=== PATIENT | female | born 1945 ===

== ENCOUNTER 2018-11-29 09:54 | Emergency (ER) | payer MEDICARE ==
[2018-11-29 10:44] LABS: Hematocrit 33.9 % (30.3-42.9); Hemoglobin 11.6 gm/dl (10.1-14.3); Mean Corpuscular HGB Conc 34 % (30-34); Mean Corpuscular Volume 87 fl (79-97); Platelet Count 189 K/mm3 (140-440); Red Blood Count 3.89 M/mm3 (3.65-5.03); Red Cell Distribution Width 12.2 % (13.2-15.2)
[2018-11-29] MEDS ORDERED: NACL 0.9% 1000 ML 1,000 ML IV ONE ×2 (11:08→15:51)
[2018-11-29] MEDS ORDERED: ZOFRAN IV ONE (11:08)
--- NOTE | 2018-11-29 11:15 | Emergency Department Report ---
ED General Adult HPI - General Chief complaint: Weakness Stated complaint: ABD PAIN Time Seen by Provider: 11/29/18 10:59 Source: patient Mode of arrival: Stretcher Limitations: Language Barrier - History of Present Illness Initial comments: Patient is 73 years old patient female translation through her sister. Patient presented to the ER complaining of generalized weakness, nausea no vomiting. Patient is also complaining of bilateral flank pain and lower abdominal pain. Family stated that she was seen by her primary care physician and started on some medication but they don't know what's the name of the medication and nor they bring the medication to the hospital. She denied any fever or chills. Patient denied any chest pain, shortness of breath, cough. She stated that her urine is hot. - Related Data Allergies Allergy/AdvReac Type Severity Reaction Status Date / Time No Known Allergies Allergy Unverified 11/29/18 11:39 ED Review of Systems ROS: Stated complaint: ABD PAIN Other details as noted in HPI Comment: All other systems reviewed and negative Constitutional: denies: chills, fever Respiratory: denies: cough, orthopnea, shortness of breath, SOB with exertion, SOB at rest, wheezing Cardiovascular: denies: chest pain, palpitations Gastrointestinal: abdominal pain, nausea, diarrhea (1 time, watery diarrhea, no blood.). denies: vomiting Genitourinary: dysuria. denies: urgency, frequency, hematuria, discharge Musculoskeletal: back pain Neurological: weakness (generalized) Psychiatric: denies: depression ED Past Medical Hx - Past Medical History Previous Medical History?: Yes Hx Hypertension: Yes Hx Diabetes: Yes Additional medical history: HYPERLIPIDEMIA, HEART DISEASE - Social History Smoking Status: Never Smoker Substance Use Type: None ED Physical Exam - General Limitations: Language Barrier General appearance: alert, in no apparent distress - Head Head exam: Present: atraumatic, normocephalic, normal inspection - Eye Eye exam: Present: normal appearance, PERRL - ENT ENT exam: Present: mucous membranes dry - Neck Neck exam: Present: normal inspection, full ROM. Absent: tenderness, meningismus, lymphadenopathy, thyromegaly - Respiratory Respiratory exam: Present: normal lung sounds bilaterally - Cardiovascular Cardiovascular Exam: Present: tachycardia, normal heart sounds. Absent: systolic murmur - GI/Abdominal GI/Abdominal exam: Present: soft, normal bowel sounds. Absent: distended, tenderness, guarding, rebound, rigid, organomegaly, mass, bruit, pulsatile mass, hernia - Extremities Exam Extremities exam: Present: normal inspection, full ROM, normal capillary refill - Back Exam Back exam: Present: normal inspection, full ROM, CVA tenderness (R), CVA tenderness (L). Absent: muscle spasm, paraspinal tenderness, vertebral tenderne ss - Neurological Exam Neurological exam: Present: alert, oriented X3, CN II-XII intact - Skin Skin exam: Present: warm, intact, normal color ED Course Vital Signs 11/29/18 11/29/18 11/29/18 09:59 10:31 14:01 Temperature 98.1 F Pulse Rate 102 H 100 H 60 Respiratory 17 18 18 Rate Blood Pressure 136/52 Blood Pressure 138/60 133/47 [Right] O2 Sat by Pulse 100 97 98 Oximetry ED Medical Decision Making - Lab Data Result diagrams: 11/29/18 10:17 11/29/18 10:17 - EKG Data -: EKG Interpreted by Ne EKG shows normal: sinus rhythm Rate: normal - EKG Data Interpretation: no acute changes - Radiology Data Radiology results: report reviewed CT abdomen and pelvis showed no acute intra-abdominal process. Chest x-ray is unremarkable. - Medical Decision Making Patient is 73 years old patient female translation through her sister. Patient presented to the ER complaining of generalized weakness, nausea no vomiting. Patient is also complaining of bilateral flank pain and lower abdominal pain. Family stated that she was seen by her primary care physician and started on some medication but they don't know what's the name of the medication and nor they bring the medication to the hospital. She denied any fever or chills. Patient denied any chest pain, shortness of breath, cough. She stated that her urine is hot. Patient received normal saline 2 L and Zofran. Patient stated that she is feeling much better. Labs reviewed and is unremarkable. Chest x-ray is negative for acute findings EKG is unremarkable. A CT abdomen and pelvis showed no acute intra-abdominal process. Patient advised to follow-up with her primary care physician in the next 2-3 days and to return to the ER if symptoms are not improved. Critical care attestation.: If time is entered above; I have spent that time in minutes in the direct care of this critically ill patient, excluding procedure time. ED Disposition Clinical Impression: Generalized weakness, Abdominal pain Disposition: TO HOME OR SELFCARE Is pt being admited?: No Condition: Stable Instructions: Abdominal Pain (ED), Weakness (ED) Referrals: BEVERLEY SANTOS MD [Primary Care Provider] - 3-5 Days
[2018-11-29 11:16] LABS: BUN/Creatinine Ratio 33; Blood Urea Nitrogen 30 mg/dL (7-17); Hemolysis Index 23
[2018-11-29 11:47] LABS: Alanine Aminotransferase 108 units/L (7-56); Albumin 3.3 g/dL (3.9-5)
[2018-11-29 11:49] LABS: Bacteria,Urine 1+ /HPF (Negative); Bilirubin,Urine NEG (Negative); Blood,Urine NEG (Negative); Color,Urine Yellow (Yellow); Mucus,Urine FEW /HPF; Protein,Urine <15 mg/dL mg/dL (Negative); Urobilinogen,Urine < 2.0 mg/dL (<2.0); WBC,Urine < 1.0 /HPF (0.0-6.0)
[2018-11-29 11:55] LABS: Bilirubin,Direct < 0.2 mg/dL (0-0.2)
--- NOTE | 2018-11-29 12:05 | XRay Report ---
AP CHEST: HISTORY: Weakness AP view of the chest demonstrates a normal mediastinal and cardiac contour with clear lungs and normal bony and soft tissue structures. IMPRESSION: No acute cardiopulmonary process.
[2018-11-29 13:18] LABS: Basophils % (Manual) 0 % (0.0-1.8); Platelet Estimate Consistent w Auto; RBC Morphology Normal; Total Cells Counted 100
--- NOTE | 2018-11-29 15:43 | Cat Scan Report ---
CT ABDOMEN PELVIS WITH CONTRAST: HISTORY: abdominal pain. COMPARISON: none. TECHNIQUE: Helical CT in 1.25mm intervals following IV contrast. Sagittal and coronal reconstructions. FINDINGS: Lung bases: Normal. Liver: Normal. Biliary system: Cholecystectomy. Pancreas: Normal. Spleen: Normal. Kidneys/ureters/bladder: Normal. Adrenal glands: Normal. Aorta: Normal. Intestines: Within normal limits given no oral contrast was administered. Appendix: Normal. Pelvic viscera: Normal. Ascites: None. Adenopathy: None. Musculoskeletal: Intact. Mild thoracolumbar spondylosis. IMPRESSION: No acute process is identified in the abdomen or pelvis.
[2018-11-29 17:09] VITALS: BP 128/59
== END 2018-11-29 17:40 | disposition home or self-care (01) ==
LOC: ED 09:54
DX: R10.31 Right lower quadrant pain (principal); R10.32 Left lower quadrant pain; R19.7 Diarrhea, unspecified; I10 Essential (primary) hypertension; E11.9 Type 2 diabetes mellitus without complications; E78.5 Hyperlipidemia, unspecified
CPT/HCPCS: 36415; 71045; 74177; 80048; 80076; 81001; 83690; 83880; 84484; 85007; 85025; 96361; 96374; 99285; J2405; J7030; Q9967

== ENCOUNTER 2019-06-17 13:23 | Emergency (ER) | payer MEDICARE | END 2019-06-17 18:10 | disposition left against medical advice (07) | LOC: ED 13:23 | CPT/HCPCS: 36415; 71046; 80053; 83880; 85025 ==